=== PATIENT | female | born 1985 | race Caucasian/White ===

== ENCOUNTER 2021-09-07 10:05 | Emergency (ER) | payer MEDICAID ==
[~2021-09-07] VITALS: Ht 154.9 cm; Wt 68.0 kg
--- NOTE | 2021-09-07 10:06 | NUR ---
PT BIBA BLS TAKEN TO ER BED 10.
[2021-09-07 10:07] VITALS: BP 134/83
--- NOTE | 2021-09-07 10:34 | NUR ---
36 Y/O FEMALE, HOMELESS, BIBA TO ED WITH C/O BL LOWER BACK PAIN S/P FALLING OFF A LADDER APPROX 8-10 FEET. DENIES LOC, SYNCOPE. DENIES N/V/D; SKIN IS PINK/WARM/DRY; AAOX4, RESTLESS, UNABLE TO AMBULATE DUE TO PAIN, C-COLLAR WAS PLACED BY [facility]; LUNGS CLEAR BL; HR EVEN AND REGULAR; PT DENIES ANY FEVER, CP, SOB, OR COUGH AT THIS TIME; PATIENT STATES PAIN OF 10/10 AT THIS TIME; PATIENT POSITIONED FOR COMFORT; HOB ELEVATED; BEDRAILS UP X2; BED DOWN. ER MD MADE AWARE OF PT STATUS. PMH: DENIES [facility] MED: DENIES
[2021-09-07] MEDS ORDERED: MORPHINE SULFATE 4 MG/ML SYR IVP ONE (10:35)
--- NOTE | 2021-09-07 11:05 | NUR ---
pt states she is unable to void in the bedpan, states she has feeling of needing to urinate, but unable. ermd made aware.
--- NOTE | 2021-09-07 11:12 | NUR ---
# 14 FR Urinary catheter inserted utilizing sterile technique. Immediate return of 700 ml clear, yellow urine noted. Urine sample collected and sent to lab. Pt tolerated procedure well.
--- NOTE | 2021-09-07 11:29 | NUR ---
pt taken to xray via deuce
--- NOTE | 2021-09-07 12:11 | NUR ---
pt requesting us to call father at this time to come pick her up Juni: [phone]
[2021-09-07] MEDS ORDERED: IBUP-2213 PO (12:29)
[2021-09-07] MEDS ORDERED: CIPR500T4 PO (12:29)
[2021-09-07] MEDS ORDERED: ACET-8386 PO (12:29)
[2021-09-07 12:55] VITALS: BP 129/62
--- NOTE | 2021-09-07 13:00 | NUR ---
Patient discharged with v/s stable. Written and verbal after care instructions given and explained. Patient alert, oriented and verbalized understanding of instructions. Wheel Chair Assisted with to car. All questions addressed prior to discharge. ID band removed. Patient advised to follow up with PMD. Rx of NORCO,CIPRO, IBU given. Patient educated on indication of medication including possible reaction and side effects. Opportunity to ask questions provided and answered.
== END 2021-09-07 13:00 | disposition home or self-care (01) ==
LOC: MED 10:05
DX: M54.50 Low back pain, unspecified (principal); N39.0 Urinary tract infection, site not specified; R11.2 Nausea with vomiting, unspecified; F17.200 Nicotine dependence, unspecified, uncomplicated; F15.90 Other stimulant use, unspecified, uncomplicated; Z98.890 Other specified postprocedural states
CPT/HCPCS: 72100; 81002; 81025; 96374; 99283; J2270